=== PATIENT | male | born 1995 | race Caucasian/White ===

== ENCOUNTER 2019-04-28 10:12 | Emergency (ER) | payer OTHER ==
[~2019-04-28] VITALS: Ht 182.8 cm; Wt 108.9 kg
[~2019-04-28 10:12] MED LIST: CLARITIN10 MG PO; PRILOSEC20 M2 PO; ZITHROMAX Z PA250 MG PO; ZITHROMAX250 MG PO
== END 2019-04-28 11:59 | disposition home or self-care (01) ==
LOC: ED 10:12
DX: S01.01XA Laceration without foreign body of scalp, initial encounter (principal); Z88.1 Allergy status to other antibiotic agents; W22.09XA Striking against other stationary object, initial encounter; Y93.89 Activity, other specified; Y92.238 Other place in hospital as the place of occurrence of the external cause; Y99.8 Other external cause status

== ENCOUNTER 2019-05-10 13:49 | Emergency (ER) | payer OTHER ==
[~2019-05-10] VITALS: Wt 108.9 kg
== END 2019-05-10 14:51 | disposition home or self-care (01) ==
LOC: ED 13:49
DX: S01.01XD Laceration without foreign body of scalp, subsequent encounter (principal); Z48.01 Encounter for change or removal of surgical wound dressing; Z88.1 Allergy status to other antibiotic agents; W22.09XD Striking against other stationary object, subsequent encounter